=== PATIENT | female | born 1975 | race Caucasian/White ===

== ENCOUNTER 2019-09-12 10:41 | Emergency (ER) | payer BC, OTHER, MEDICAID ==
[~2019-09-12] VITALS: Ht 165.1 cm; Wt 80.7 kg
[~2019-09-12 10:41] MED LIST: ABILIFY10 MG; ACETAMINOPHEN-1 EAC1 PO; ATIVAN1 MG PO; BACITRACIN-POL3.5 GM OP; CEPHALEXIN 500500 M3 PO; CLEOCIN HCL150 MG PO; CYMBALTA60 MG; DEXAMETHASONE 44 M1 PO; IBUPROFEN 800800 M1 PO; LEVOTHYROXIN0.075 MG PO; LEXAPRO; OMEPRAZOLE20 M2 PO; PERCOCET 7.5-31 EACH PO; SYNTHROID75 MCG; VITAMIN D1000 UNI1 PO; ZOFRAN4 MG PO
[2019-09-12 11:03] LABS: ABSOLUTE BASOPHILS 0.1 thou/uL (0.0-0.2); ABSOLUTE MONOCYTES 0.2 thou/uL (0.0-1.2); ABSOLUTE NEUTROPHILS 6.8 thou/uL (1.6-8.1); BASOPHILS 0.7 %; EOSINOPHILS 0.1 %; HEMATOCRIT 40.7 % (37.0-47.0); HEMOGLOBIN 14.1 gm/dL (12.0-15.0); LYMPHOCYTES 22.3 %; MCH 33.2 pg (26.0-34.0); MCHC 34.8 g/dL (28.0-37.0); MCV 95.5 fL (80.0-100.0); MONOCYTES 2.5 %; MPV 7.1 fl. (7.2-11.1); NUCLEATED RBCS 0 /100WBC; PLATELET COUNT* 351 thou/uL (150-400); POLYS 74.4 %; RBC 4.26 mil/uL (4.20-5.00); RDW-CV 14.9 % (10.5-14.5); WBC 9.2 thou/uL (4.0-11.0)
[2019-09-12] MEDS ORDERED: PRILOSEC OTC20 MG PO (11:03)
[2019-09-12] MEDS ORDERED: SEROQUEL 25 MG25 MG PO (11:03)
[2019-09-12 11:05] LABS: URINE BILIRUBIN NEGATIVE (Negative); URINE BLOOD NEGATIVE (Negative); URINE CLARITY CLEAR; URINE COLOR YELLOW; URINE GLUCOSE-RANDOM NEGATIVE (Negative); URINE KETONES 2+ (Negative); URINE LEUKOCYTES-REFLEX NEGATIVE (Negative); URINE NITRITE-REFLEX NEGATIVE (Negative); URINE PROTEIN NEGATIVE (Negative); URINE SPECIFIC GRAVITY >= 1.030 (1.005-1.030); URINE UROBILINOGEN 0.2 E.U./dl (0.2-1.0)
[2019-09-12 11:11] LABS: AMP/METHAMP Negative (Negative); BARBITURATES Negative (Negative); BENZODIAZEPINES Negative (Negative); COCAINE Negative (Negative); METHADONE Negative (Negative); OPIATES Negative (Negative); PCP Negative (Negative); THC Negative (Negative)
[2019-09-12] MEDS ORDERED: TRAZODONE HCL100 MG PO (11:11)
[2019-09-12] MEDS ORDERED: BUPROPION HCL100 MG PO (11:12)
[2019-09-12] MEDS ORDERED: HYDROCHLOROTHIA25 M2 PO (11:12)
[2019-09-12] MEDS ORDERED: LAMICTAL25 MG PO (11:13)
[2019-09-12] MEDS ORDERED: TRAMADOL 50 MG50 MG PO (11:13)
[2019-09-12] MEDS ORDERED: CYMBALTA20 MG PO (11:13)
[2019-09-12] MEDS ORDERED: ABILIFY10 MG PO (11:13)
[2019-09-12 11:14] LABS: POTASSIUM 3.7 mmol/L (3.5-5.1)
[2019-09-12 11:19] LABS: ACETAMINOPHEN < 2 ug/mL (10-30); ALBUMIN 4.1 g/dL (3.4-5.0); ALCOHOL 173 mg/dL (<10); SALICYLATE < 2.8 mg/dL (2.8-20.0); TOTAL BILIRUBIN 0.4 mg/dL (<0.1-1.0); TOTAL PROTEIN 8.3 g/dL (6.4-8.2)
[2019-09-12 17:50] VITALS: BP 122/64
== END 2019-09-12 17:50 ==
LOC: M.ERS 10:41
PROVIDERS: Emergency Medicine Emergency Medical Services
DX: R45.851 Suicidal ideations (principal); I10 Essential (primary) hypertension; E03.9 Hypothyroidism, unspecified; Z98.84 Bariatric surgery status